=== PATIENT | female | born 1960 | race Caucasian/White ===

== ENCOUNTER → 2016-10-11 | Outpatient (CLI) | payer OTHER ==
[2014-06-17 14:22] VITALS: BP 140/86
[~2016-10-11] MED LIST: CALC-31 PO; MULT1TAB52 PO; OMEG500C PO
--- NOTE | 2016-10-11 14:45 | KCIC ---
CHEST PA LATERAL History: . Wheezing. Cough for 2 months. 20 year smoker. Comparison: None available Findings: Cardiomediastinal silhouettes are within normal limits. There are emphysematous changes of both lungs. No focal airspace consolidation. Surgical clips are noted. No pneumothorax identified. No evidence of pleural effusion. The aorta is tortuous. Impression: No evidence of active airspace consolidation. Electronically signed by: Isaac Rodarte MD (10/11/2016 2:42 PM) [facility]2
== END | disposition home or self-care (01) ==
LOC: KCIC 14:11
PROVIDERS: ATTEND Nurse Practitioner Family
DX: R05 Cough (principal); R06.2 Wheezing; Z87.891 Personal history of nicotine dependence
CPT/HCPCS: 71020

== ENCOUNTER → 2017-04-13 | Outpatient (CLI) | payer MEDICARE, OTHER | END | disposition home or self-care (01) | LOC: KCIC 11:54 | DX: R91.8 Other nonspecific abnormal finding of lung field (principal); R05 Cough | CPT/HCPCS: 71046 ==

== ENCOUNTER → 2017-04-24 | Outpatient (CLI) | payer MEDICARE, OTHER | END | disposition home or self-care (01) | LOC: ECHO 13:43 | DX: C50.412 Malignant neoplasm of upper-outer quadrant of left female breast (principal); C41.9 Malignant neoplasm of bone and articular cartilage, unspecified | CPT/HCPCS: 93308 ==

== ENCOUNTER 2017-09-22 16:59 | Inpatient (IN) | payer MEDICARE, OTHER ==
[2017-09-22] MEDS ORDERED: ONDANSETRON PF 4 MG/2 ML VIAL. IV (18:45)
[2017-09-22] MEDS ORDERED: guaiFENesin DM 200MG/20MG 10 ML SYRUP PO (18:45)
[2017-09-22] MEDS ORDERED: oxyCODONE IR 5 MG TABLET PO ×2 (18:45→19:00)
[2017-09-22] MEDS ORDERED: BISACODYL 10 MG SUPP.RECT. PR (18:45)
[2017-09-22] MEDS ORDERED: PROCHLORPERAZINE 25 MG SUPP.RECT. PR (18:45)
[2017-09-22] MEDS ORDERED: MORPHINE SULFATE 2 MG/ML DISP.SYRIN. IV (18:45)
[2017-09-22] MEDS ORDERED: MAGNESIUM HYDROXIDE 2,400 MG/30 ML ORAL.SUSP. PO (18:45)
[2017-09-22] MEDS ORDERED: levOFLOXacin PER PHARMACY. MC ×2 (18:45→20:45)
[2017-09-22] MEDS ORDERED: IBUPROFEN 400 MG TABLET. PO (18:45)
[2017-09-22] MEDS ORDERED: ZOLPIDEM 5 MG TABLET. PO (18:45)
[2017-09-22] MEDS ORDERED: MAG HYDROX/ALUMINUM HYD/SIMETH 30 ML ORAL.SUSP PO (18:45)
[2017-09-22] MEDS ORDERED: PROCHLORPERAZINE 10 MG/2 ML VIAL. IV (18:45)
[2017-09-22] MEDS ORDERED: ONDANSETRON ODT 4 MG TAB.RAPDIS. PO (19:00)
[2017-09-22] MEDS: IV 1/2 NORMAL SALINE 1,000 ML IV (19:00)
[2017-09-22] MEDS: IPRATRPIUM/ALBUTEROL 0.5/2.5MG 3 ML NEBU. NEB (19:45)
[2017-09-22] MEDS: GABAPENTIN 300 MG CAPSULE. PO (20:40)
[2017-09-22] MEDS: oxyCODONE IR 5 MG TABLET PO (20:40)
[2017-09-22] MEDS: ATORVASTATIN CALCIUM 10 MG TABLET. PO (20:40)
[2017-09-22] MEDS: MONTELUKAST SODIUM 10 MG TABLET. PO (20:40)
[2017-09-22] MEDS: ACETAMINOPHEN 325 MG TABLET. PO (20:41)
[2017-09-22] MEDS: oxyCODONE ER 40 MG TAB.ER.12H PO (20:42)
[2017-09-22 21:22] LABS: ANION GAP 9 (6-14); BLOOD UREA NITROGEN 7 mg/dL (7-20); BUN/CREATININE RATIO 9 (6-20); CALCIUM 7.9 mg/dL (8.5-10.1); CARBON DIOXIDE 26 mmol/L (21-32); CHLORIDE 87 mmol/L (98-107); CREATININE 0.8 mg/dL (0.6-1.0); GFR 74.7; GLUCOSE 94 mg/dL (70-99); POTASSIUM 3.2 mmol/L (3.5-5.1); SODIUM 122 mmol/L (136-145)
[2017-09-22 21:28] LABS: ALBUMIN 3.2 g/dL (3.4-5.0); ALBUMIN/GLOBULIN RATIO 0.9 (1.0-1.7); ALK PHOS 44 U/L (46-116); ALT (SGPT) 42 U/L (14-59); AST (SGOT) 137 U/L (15-37); TOTAL BILIRUBIN 0.6 mg/dL (0.2-1.0); TOTAL PROTEIN 6.8 g/dL (6.4-8.2)
[2017-09-22 21:33] LABS: LACTIC ACID 2.1 mmol/L (0.4-2.0)
[2017-09-22] MEDS: FAMOTIDINE 20 MG/2 ML VIAL IVP (23:41)
[2017-09-23 01:18] LABS: ADD MAN DIFF? NO
[2017-09-23 01:24] LABS: BASO % 0 % (0-3); EOS % 0 % (0-3); HEMATOCRIT 33.3 % (36.0-47.0); HEMOGLOBIN 11.8 g/dL (12.0-15.5); LYMPH # 0.4 x10^3/uL (1.0-4.8); LYMPH % 20 % (24-48); MEAN CORPUSCULAR HEMOGLOBIN 38 pg (25-35); MEAN CORPUSCULAR HGB CONC 35 g/dL (31-37); MEAN CORPUSCULAR VOLUME 107 fL (79-100); MONO % 2 % (0-9); NEUT # 1.5 x10^3uL (1.8-7.7); NEUT % 77 % (31-73); PLATELET COUNT 63 x10^3/uL (140-400); RED BLOOD COUNT 3.12 x10^6/uL (3.50-5.40); RED CELL DISTRIBUTION WIDTH 13.9 % (11.5-14.5)
[2017-09-23 01:25] LABS: WHITE BLOOD COUNT 1.9 x10^3/uL (4.0-11.0)
[2017-09-23 01:31] LABS: INR 1.3 (0.8-1.1); PROTHROMBIN TIME PATIENT 15.8 SEC (11.7-14.0)
[2017-09-23 01:32] LABS: ANION GAP 9 (6-14); BLOOD UREA NITROGEN 8 mg/dL (7-20); CARBON DIOXIDE 25 mmol/L (21-32); CHLORIDE 86 mmol/L (98-107); CREATININE 0.8 mg/dL (0.6-1.0); GFR 74.7; GLUCOSE 84 mg/dL (70-99); POTASSIUM 3.2 mmol/L (3.5-5.1)
[2017-09-23 01:36] LABS: SODIUM 120 mmol/L (136-145)
[2017-09-23 01:42] LABS: LACTIC ACID 2.1 mmol/L (0.4-2.0)
[2017-09-23] MEDS: IV NORMAL SALINE 1000ML BAG 1,000 ML IV ×3 (03:21→23:15)
[2017-09-23] MEDS: IPRATRPIUM/ALBUTEROL 0.5/2.5MG 3 ML NEBU. NEB ×4 (07:41→19:49)
[2017-09-23] MEDS: oxyCODONE IR 5 MG TABLET PO ×2 (08:09→15:52)
[2017-09-23] MEDS: oxyCODONE ER 40 MG TAB.ER.12H PO ×2 (08:09→20:15)
[2017-09-23] MEDS: GABAPENTIN 300 MG CAPSULE. PO ×2 (08:10→20:14)
[2017-09-23] MEDS: methylPREDNISolone SOD SUCC PF 125 MG/2 ML VIAL. IV ×3 (10:06→21:06)
[2017-09-23] MEDS: CALCIUM CARBONATE 500 MG TAB.CHEW PO ×2 (20:14→23:51)
[2017-09-23] MEDS: MONTELUKAST SODIUM 10 MG TABLET. PO (20:15)
[2017-09-23] MEDS: ATORVASTATIN CALCIUM 10 MG TABLET. PO (20:15)
[2017-09-23] MEDS: FAMOTIDINE 20 MG TABLET. PO (20:15)
[2017-09-24] MEDS: IV NORMAL SALINE 1000ML BAG 1,000 ML IV ×2 (05:04→19:15)
[2017-09-24] MEDS: methylPREDNISolone SOD SUCC PF 125 MG/2 ML VIAL. IV ×3 (05:04→21:53)
[2017-09-24] MEDS: oxyCODONE IR 5 MG TABLET PO ×3 (05:11→16:27)
[2017-09-24 05:40] LABS: THYROID STIM HORMONE (TSH) 35.121 uIU/mL (0.358-3.74)
[2017-09-24] MEDS: IPRATRPIUM/ALBUTEROL 0.5/2.5MG 3 ML NEBU. NEB ×4 (06:56→19:59)
[2017-09-24] MEDS: GABAPENTIN 300 MG CAPSULE. PO ×2 (09:02→20:21)
[2017-09-24] MEDS: oxyCODONE ER 40 MG TAB.ER.12H PO ×2 (09:10→20:22)
[2017-09-24 10:52] LABS: BASO % 0 % (0-3); EOS % 0 % (0-3); HEMATOCRIT 33.3 % (36.0-47.0); LYMPH # 0.2 x10^3/uL (1.0-4.8); LYMPH % 4 % (24-48); MEAN CORPUSCULAR HEMOGLOBIN 38 pg (25-35); MEAN CORPUSCULAR HGB CONC 36 g/dL (31-37); MEAN CORPUSCULAR VOLUME 105 fL (79-100); MONO # 0.1 x10^3/uL (0.0-1.1); MONO % 2 % (0-9); NEUT # 6.4 x10^3uL (1.8-7.7); NEUT % 94 % (31-73); PLATELET COUNT 96 x10^3/uL (140-400); RED BLOOD COUNT 3.16 x10^6/uL (3.50-5.40); RED CELL DISTRIBUTION WIDTH 13.9 % (11.5-14.5); WHITE BLOOD COUNT 6.8 x10^3/uL (4.0-11.0)
[2017-09-24 11:13] LABS: ADD MAN DIFF? YES
[2017-09-24 13:28] LABS: % BANDS 40 % (0-9); % LYMPHS 6 % (24-48); % MONOS 1 % (0-10); % SEGS 53 % (35-66); PLT ESTIMATE DECREASED (ADEQUATE)
[2017-09-24 13:29] LABS: TOXIC GRANULATION MARKED; TOXIC VACUOLATION PRESENT
[2017-09-24] MEDS: ALPRAZolam 1 MG TABLET PO (16:28)
[2017-09-24] MEDS: ATORVASTATIN CALCIUM 10 MG TABLET. PO (20:21)
[2017-09-24] MEDS: FAMOTIDINE 20 MG TABLET. PO (20:21)
[2017-09-24] MEDS: ZOLPIDEM 5 MG TABLET. PO (20:22)
[2017-09-24] MEDS: MONTELUKAST SODIUM 10 MG TABLET. PO (20:22)
[2017-09-24 20:54] LABS: BASE EXCESS ABG 3 mmol/L (-3-3); HCO3 ABG 26 mmol/L (21-28); PCO2 ABG 34 mmHg (35-46); PH ABG 7.49 (7.35-7.45); PO2 ABG 94 mmHg (75-108); SAT O2 ABG 97 % (92-99)
[2017-09-24 21:03] LABS: FIO2 ABG 60
[2017-09-25] MEDS: IV NORMAL SALINE 1000ML BAG 1,000 ML IV ×2 (05:15→17:30)
[2017-09-25] MEDS: methylPREDNISolone SOD SUCC PF 125 MG/2 ML VIAL. IV ×3 (06:17→21:10)
[2017-09-25] MEDS: IPRATRPIUM/ALBUTEROL 0.5/2.5MG 3 ML NEBU. NEB ×4 (07:20→20:18)
[2017-09-25] MEDS: oxyCODONE ER 40 MG TAB.ER.12H PO ×2 (09:00→21:10)
[2017-09-25] MEDS: GABAPENTIN 300 MG CAPSULE. PO ×2 (09:00→21:09)
[2017-09-25] MEDS ORDERED: PROPOFOL 20 ML IV (13:33)
[2017-09-25] MEDS: IV RINGERS,LACTATED 1000ML 1,000 ML IV (13:40)
[2017-09-25] MEDS ORDERED: MIDAZOLAM HCL/PF 2 MG/2 ML VIAL. IV (13:45)
[2017-09-25] MEDS: LIDOCAINE 2% IJ (13:45)
[2017-09-25] MEDS ORDERED: LIDOCAINE 1% PF 2 ML VIAL. ID (13:45)
[2017-09-25] MEDS ORDERED: fentaNYL PF VIAL 100 MCG/2 ML VIAL IV ×2 (13:45)
[2017-09-25] MEDS: ATORVASTATIN CALCIUM 10 MG TABLET. PO (21:09)
[2017-09-25] MEDS: ZOLPIDEM 5 MG TABLET. PO (21:09)
[2017-09-25] MEDS: FAMOTIDINE 20 MG TABLET. PO (21:09)
[2017-09-25] MEDS: MONTELUKAST SODIUM 10 MG TABLET. PO (21:09)
[2017-09-26] MEDS: IV NORMAL SALINE 1000ML BAG 1,000 ML IV ×3 (00:49→20:36)
[2017-09-26] MEDS: methylPREDNISolone SOD SUCC PF 125 MG/2 ML VIAL. IV ×3 (06:23→22:38)
[2017-09-26] MEDS: IPRATRPIUM/ALBUTEROL 0.5/2.5MG 3 ML NEBU. NEB ×4 (07:17→19:26)
[2017-09-26] MEDS: GABAPENTIN 300 MG CAPSULE. PO ×2 (07:58→21:07)
[2017-09-26] MEDS: oxyCODONE ER 40 MG TAB.ER.12H PO ×2 (08:00→21:08)
[2017-09-26] MEDS: FAMOTIDINE 20 MG TABLET. PO (21:07)
[2017-09-26] MEDS: MONTELUKAST SODIUM 10 MG TABLET. PO (21:08)
[2017-09-26] MEDS: ATORVASTATIN CALCIUM 10 MG TABLET. PO (21:08)
[2017-09-27] MEDS: methylPREDNISolone SOD SUCC PF 125 MG/2 ML VIAL. IV ×4 (05:58→21:33)
[2017-09-27] MEDS: IV NORMAL SALINE 1000ML BAG 1,000 ML IV ×2 (07:15→16:27)
[2017-09-27] MEDS: IPRATRPIUM/ALBUTEROL 0.5/2.5MG 3 ML NEBU. NEB ×4 (07:24→20:00)
[2017-09-27] MEDS: GABAPENTIN 300 MG CAPSULE. PO ×2 (07:55→23:28)
[2017-09-27] MEDS: cloNIDine TTS-1 1 PATCH PATCH.TDWK TD (07:56)
[2017-09-27] MEDS: oxyCODONE ER 40 MG TAB.ER.12H PO ×2 (07:56→23:28)
[2017-09-27] MEDS: ATORVASTATIN CALCIUM 10 MG TABLET. PO (23:28)
[2017-09-27] MEDS: FAMOTIDINE 20 MG TABLET. PO (23:28)
[2017-09-27] MEDS: MONTELUKAST SODIUM 10 MG TABLET. PO (23:28)
[2017-09-28] MEDS: IV NORMAL SALINE 1000ML BAG 1,000 ML IV ×3 (01:36→23:13)
[2017-09-28] MEDS: methylPREDNISolone SOD SUCC PF 125 MG/2 ML VIAL. IV ×3 (05:39→21:58)
[2017-09-28] MEDS: IPRATRPIUM/ALBUTEROL 0.5/2.5MG 3 ML NEBU. NEB ×4 (07:24→19:22)
[2017-09-28] MEDS: oxyCODONE ER 40 MG TAB.ER.12H PO ×2 (09:22→21:59)
[2017-09-28] MEDS: GABAPENTIN 300 MG CAPSULE. PO ×2 (09:22→21:58)
[2017-09-28 13:30] LABS: ADD MAN DIFF? NO
[2017-09-28 13:39] LABS: BASO % 0 % (0-3); EOS % 0 % (0-3); HEMATOCRIT 31.3 % (36.0-47.0); HEMOGLOBIN 11.2 g/dL (12.0-15.5); LYMPH # 0.3 x10^3/uL (1.0-4.8); LYMPH % 4 % (24-48); MEAN CORPUSCULAR HEMOGLOBIN 38 pg (25-35); MEAN CORPUSCULAR HGB CONC 36 g/dL (31-37); MEAN CORPUSCULAR VOLUME 105 fL (79-100); MONO % 0 % (0-9); NEUT # 7.7 x10^3uL (1.8-7.7); NEUT % 96 % (31-73); PLATELET COUNT 45 x10^3/uL (140-400); RED BLOOD COUNT 2.98 x10^6/uL (3.50-5.40); RED CELL DISTRIBUTION WIDTH 13.9 % (11.5-14.5)
[2017-09-28 13:54] LABS: ALBUMIN 2.8 g/dL (3.4-5.0); ALBUMIN/GLOBULIN RATIO 0.8 (1.0-1.7); ALK PHOS 60 U/L (46-116); ALT (SGPT) 49 U/L (14-59); ANION GAP 7 (6-14); AST (SGOT) 151 U/L (15-37); BLOOD UREA NITROGEN 10 mg/dL (7-20); BUN/CREATININE RATIO 14 (6-20); CALCIUM 7.7 mg/dL (8.5-10.1); CARBON DIOXIDE 28 mmol/L (21-32); CHLORIDE 95 mmol/L (98-107); CREATININE 0.7 mg/dL (0.6-1.0); GFR 86.9; GLUCOSE 160 mg/dL (70-99); POTASSIUM 3.1 mmol/L (3.5-5.1); SODIUM 130 mmol/L (136-145); TOTAL BILIRUBIN 0.5 mg/dL (0.2-1.0); TOTAL PROTEIN 6.3 g/dL (6.4-8.2)
[2017-09-28] MEDS: MICAFUNGIN 100 MG in IV DEXTROSE 5% 100ML 100 ML IV (15:59)
[2017-09-28] MEDS: oxyCODONE IR 5 MG TABLET PO (16:44)
[2017-09-28] MEDS: MAG HYDROX/ALUMINUM HYD/SIMETH 30 ML ORAL.SUSP PO (18:25)
[2017-09-28] MEDS: FAMOTIDINE 20 MG TABLET. PO (21:58)
[2017-09-28] MEDS: ATORVASTATIN CALCIUM 10 MG TABLET. PO (21:59)
[2017-09-28] MEDS: MONTELUKAST SODIUM 10 MG TABLET. PO (21:59)
[2017-09-29] MEDS: methylPREDNISolone SOD SUCC PF 125 MG/2 ML VIAL. IV ×2 (05:55→16:22)
[2017-09-29] MEDS: IPRATRPIUM/ALBUTEROL 0.5/2.5MG 3 ML NEBU. NEB ×3 (07:58→16:00)
[2017-09-29] MEDS: GABAPENTIN 300 MG CAPSULE. PO (08:47)
[2017-09-29] MEDS: oxyCODONE ER 40 MG TAB.ER.12H PO (08:48)
[2017-09-29] MEDS: IV NORMAL SALINE 1000ML BAG 1,000 ML IV (08:51)
[2017-09-29] MEDS ORDERED: IV NORMAL SALINE 1000ML BAG 1,000 ML IV (11:00)
== END 2017-09-29 17:10 | disposition home or self-care (01) | DRG 853 ==
LOC: 5 SOUTH 09-24 16:07
PROC: 0B9J8ZX Drainage of Left Lower Lung Lobe, Via Natural or Artificial Opening Endoscopic, Diagnostic (ICD-10-PCS; principal; 2017-09-25 14:48)
PROC: 0BCB8ZZ Extirpation of Matter from Left Lower Lobe Bronchus, Via Natural or Artificial Opening Endoscopic (ICD-10-PCS; 2017-09-25 14:48)
DX: A41.9 Sepsis, unspecified organism (principal); J18.9 Pneumonia, unspecified organism; J96.01 Acute respiratory failure with hypoxia; G93.40 Encephalopathy, unspecified; E46 Unspecified protein-calorie malnutrition; E87.1 Hypo-osmolality and hyponatremia; J44.0 Chronic obstructive pulmonary disease with (acute) lower respiratory infection; C79.51 Secondary malignant neoplasm of bone; T17.890A Other foreign object in other parts of respiratory tract causing asphyxiation, initial encounter; D64.9 Anemia, unspecified; D70.9 Neutropenia, unspecified; E78.00 Pure hypercholesterolemia, unspecified; E87.6 Hypokalemia; F17.210 Nicotine dependence, cigarettes, uncomplicated; F41.9 Anxiety disorder, unspecified; G47.00 Insomnia, unspecified; G89.29 Other chronic pain; I10 Essential (primary) hypertension; Z51.5 Encounter for palliative care; M19.90 Unspecified osteoarthritis, unspecified site; C50.919 Malignant neoplasm of unspecified site of unspecified female breast; X58.XXXA Exposure to other specified factors, initial encounter; Z68.25 Body mass index [BMI] 25.0-25.9, adult; Z85.72 Personal history of non-Hodgkin lymphomas; Z85.3 Personal history of malignant neoplasm of breast; Z85.850 Personal history of malignant neoplasm of thyroid; Z87.01 Personal history of pneumonia (recurrent); Z90.13 Acquired absence of bilateral breasts and nipples; Z99.81 Dependence on supplemental oxygen; Z87.81 Personal history of (healed) traumatic fracture; Z90.11 Acquired absence of right breast and nipple; Z82.61 Family history of arthritis; Y93.89 Activity, other specified; Y92.89 Other specified places as the place of occurrence of the external cause; Y99.8 Other external cause status
CPT/HCPCS: 31622; 36415; 36600; 71046; 80048; 80053; 82805; 83605; 84443; 85007; 85025; 85610; 87040; 87070; 87102; 87116; 88112; 88312; 93005; 94618; 94640; 94660; 94760; 97163-GP; 97166-GO; 97530-GO; 97530-GP; 97535-GO; J1956; J2060; J2248; J2704; J2930; J7030; J7120; J7620; S0028

== ENCOUNTER → 2017-12-05 | Outpatient (CLI) | payer MEDICARE, OTHER ==
[2017-10-12 07:00] VITALS: BP 112/58
[~2017-12-05] MED LIST changes: +ATOR10TA60 PO; +BUDE180A IH; +CLON1PAT TD; +FAMO20TA5 PO; +FULV250D IM; +GABA-586 PO; +IOHEXOL 240 MG/ML 50ML VIAL. PO ONE; +IOHEXOL 300 MG/ML 100ML VIAL. IV ONE; +IPRA3AMP29 NEB; +LEVO500T59 PO; +LEVO750T31 PO; +LINE600T PO; +METH4TAB2 PO; +MONT10TA9 PO; +ONDA4TAB7 PO; +OXYC10TA PO; +OXYC40TA21 PO; +OXYC5TAB95 PO; +ZOLP10TA PO; +[UNRECOGNIZED DRUG - CODE] IV
--- NOTE | 2017-12-05 16:31 | RAD ---
PQRS Compliance Statement: One or more of the following individualized dose reduction techniques were utilized for this examination: 1. Automated exposure control 2. Adjustment of the mA and/or kV according to patient size 3. Use of iterative reconstruction technique CT chest, abdomen and pelvis with contrast December 05, 2017 INDICATION: Breast cancer, lung mass. COMPARISON: CT angiography chest April 15, 2017. TECHNIQUE: Multiple axial CT images of the chest, abdomen and pelvis were obtained after the intravenous administration of 75 mL Omnipaque 300. Coronal and sagittal reformats are provided. FINDINGS: CHEST: The thyroid gland is normal in appearance. There is a right superior paratracheal lymph node which measures 7 mm by short axis (series 2, image 20). Surgical clips are identified in the left axilla. Few surgical clips are noted in the right axilla. Bilateral breast prosthesis noted. There is folding of the internal architecture of the capsule of the right breast prosthesis with minimal fluid along the right lateral margin suggestive of rupture of the prosthesis. Heart size is within normal limits. There is a small pericardial effusion. Thoracic aorta is normal in course and caliber. There is mild centrilobular pulmonary emphysema. Subpleural nodules are identified along the major fissure in the right middle lobe measuring up to 6 mm (series 2, image 45). There is mild bronchial wall thickening with mild tree-in-bud nodularity in the right lower lobe. There is a 4 mm solid noncalcified pulmonary nodule in the right upper lobe (series 2, image 25). There is a subpleural nodule in the right upper lobe anteriorly measuring 5 mm (series 2, image 30). There is a semisolid nodule in the superior segment left lower lobe measuring 8 mm with a 1-2 mm solid component (series 2, image 28). Bronchial wall thickening is compatible with bronchitis. There is a CSF consolidation in the left lower lobe has predominantly resolved. Tree-in-bud nodularity in the right lower lobe has predominantly resolved with mild residual. ABDOMEN/PELVIS: The liver, spleen, bilateral adrenal glands, pancreas and gallbladder are normal in appearance. The abdominal aorta is normal in course and caliber. There are no pathologically enlarged lymph nodes in the abdomen and pelvis. There is no abdominal free fluid. There is no free intraperitoneal air. Moderate atherosclerotic calcination abdominal aorta is noted. The kidneys enhance symmetrically. There is no suspicious renal mass. There is no hydronephrosis. There are no suspected calculi within the kidneys, ureters or urinary bladder. Oral contrast was administered. Opacified bowel loops demonstrate normal mucosal fold pattern. Small and large bowel are normal in caliber. There is no evidence for bowel obstruction. There are no pericolonic inflammatory changes. A normal, nondilated appendix is visualized without adjacent inflammatory changes. Urinary bladder is within normal limits given degree of distention. Uterus and adnexa appear normal. Fixation hardware is identified in the proximal left femur. Sclerotic osseous densities are noted involving the iliac bones, sacrum and spine compatible with osseous metastatic disease. There is a superior endplate compression deformity of T12 with approximately 25-50 percent height loss. No significant sclerotic lesion is visualized in this region to suggest pathologic fracture. Findings appear chronic. Osseous lesion is identified involving the sternum without significant soft tissue component. IMPRESSION: 1. Interval near complete resolution of airspace disease in the left lower lobe. There is a semisolid nodule in the superior segment left lower lobe which may be infectious/inflammatory. 2. Tree-in-bud nodular airspace disease persists in the right lower lobe with interval improvement compared to prior examination. Recommend follow-up chest CT in 4-6 weeks to ensure resolution. At this time, additional 6-8 mm pulmonary nodules may be further assessed. 3. COPD changes with mild centrilobular pulmonary emphysema and bronchitis. 4. No pathologically enlarged thoracic lymph nodes are visualized. 5. No evidence for bryant metastases involving the abdomen and pelvis. 6. Sclerotic osseous metastatic disease is visualized. Superior plate compression deformity of T12 may be secondary to Schmorl's node. And likely chronic. Electronically signed by: Beryl Leija MD (12/05/2017 4:28 PM) [facility]
== END | disposition home or self-care (01) ==
LOC: CT 10:17
PROVIDERS: ATTEND Internal Medicine Hematology & Oncology
DX: C50.912 Malignant neoplasm of unspecified site of left female breast (principal); I10 Essential (primary) hypertension; J43.8 Other emphysema; I70.0 Atherosclerosis of aorta; E78.00 Pure hypercholesterolemia, unspecified; E78.5 Hyperlipidemia, unspecified
CPT/HCPCS: 74177; Q9966; Q9967

== ENCOUNTER → 2017-12-05 | Outpatient (CLI) | payer MEDICARE, OTHER ==
[2017-10-12 07:00] VITALS: BP 112/58
[~2017-12-05] MED LIST changes: -IOHEXOL 240 MG/ML 50ML VIAL. PO ONE; -IOHEXOL 300 MG/ML 100ML VIAL. IV ONE
--- NOTE | 2017-12-05 16:31 | RAD ---
PQRS Compliance Statement: One or more of the following individualized dose reduction techniques were utilized for this examination: 1. Automated exposure control 2. Adjustment of the mA and/or kV according to patient size 3. Use of iterative reconstruction technique CT chest, abdomen and pelvis with contrast December 05, 2017 INDICATION: Breast cancer, lung mass. COMPARISON: CT angiography chest April 15, 2017. TECHNIQUE: Multiple axial CT images of the chest, abdomen and pelvis were obtained after the intravenous administration of 75 mL Omnipaque 300. Coronal and sagittal reformats are provided. FINDINGS: CHEST: The thyroid gland is normal in appearance. There is a right superior paratracheal lymph node which measures 7 mm by short axis (series 2, image 20). Surgical clips are identified in the left axilla. Few surgical clips are noted in the right axilla. Bilateral breast prosthesis noted. There is folding of the internal architecture of the capsule of the right breast prosthesis with minimal fluid along the right lateral margin suggestive of rupture of the prosthesis. Heart size is within normal limits. There is a small pericardial effusion. Thoracic aorta is normal in course and caliber. There is mild centrilobular pulmonary emphysema. Subpleural nodules are identified along the major fissure in the right middle lobe measuring up to 6 mm (series 2, image 45). There is mild bronchial wall thickening with mild tree-in-bud nodularity in the right lower lobe. There is a 4 mm solid noncalcified pulmonary nodule in the right upper lobe (series 2, image 25). There is a subpleural nodule in the right upper lobe anteriorly measuring 5 mm (series 2, image 30). There is a semisolid nodule in the superior segment left lower lobe measuring 8 mm with a 1-2 mm solid component (series 2, image 28). Bronchial wall thickening is compatible with bronchitis. There is a CSF consolidation in the left lower lobe has predominantly resolved. Tree-in-bud nodularity in the right lower lobe has predominantly resolved with mild residual. ABDOMEN/PELVIS: The liver, spleen, bilateral adrenal glands, pancreas and gallbladder are normal in appearance. The abdominal aorta is normal in course and caliber. There are no pathologically enlarged lymph nodes in the abdomen and pelvis. There is no abdominal free fluid. There is no free intraperitoneal air. Moderate atherosclerotic calcination abdominal aorta is noted. The kidneys enhance symmetrically. There is no suspicious renal mass. There is no hydronephrosis. There are no suspected calculi within the kidneys, ureters or urinary bladder. Oral contrast was administered. Opacified bowel loops demonstrate normal mucosal fold pattern. Small and large bowel are normal in caliber. There is no evidence for bowel obstruction. There are no pericolonic inflammatory changes. A normal, nondilated appendix is visualized without adjacent inflammatory changes. Urinary bladder is within normal limits given degree of distention. Uterus and adnexa appear normal. Fixation hardware is identified in the proximal left femur. Sclerotic osseous densities are noted involving the iliac bones, sacrum and spine compatible with osseous metastatic disease. There is a superior endplate compression deformity of T12 with approximately 25-50 percent height loss. No significant sclerotic lesion is visualized in this region to suggest pathologic fracture. Findings appear chronic. Osseous lesion is identified involving the sternum without significant soft tissue component. IMPRESSION: 1. Interval near complete resolution of airspace disease in the left lower lobe. There is a semisolid nodule in the superior segment left lower lobe which may be infectious/inflammatory. 2. Tree-in-bud nodular airspace disease persists in the right lower lobe with interval improvement compared to prior examination. Recommend follow-up chest CT in 4-6 weeks to ensure resolution. At this time, additional 6-8 mm pulmonary nodules may be further assessed. 3. COPD changes with mild centrilobular pulmonary emphysema and bronchitis. 4. No pathologically enlarged thoracic lymph nodes are visualized. 5. No evidence for bryant metastases involving the abdomen and pelvis. 6. Sclerotic osseous metastatic disease is visualized. Superior plate compression deformity of T12 may be secondary to Schmorl's node. And likely chronic. Electronically signed by: Beryl Leija MD (12/05/2017 4:28 PM) [facility]1
== END | disposition home or self-care (01) ==
LOC: CT 10:20
PROVIDERS: ATTEND Internal Medicine Pulmonary Disease
DX: C50.912 Malignant neoplasm of unspecified site of left female breast (principal); I10 Essential (primary) hypertension; E78.5 Hyperlipidemia, unspecified; E78.00 Pure hypercholesterolemia, unspecified; J43.8 Other emphysema; Z87.891 Personal history of nicotine dependence
CPT/HCPCS: 71260

== ENCOUNTER → 2018-01-24 | Day surgery (SDC) | payer MEDICARE, OTHER ==
[~2018-01-24] VITALS: Ht 165.1 cm; Wt 66.7 kg
[~2018-01-24] MED LIST changes: +BUPIVACAINE MPF 0.5% 30 ML VIAL. ONE; +DEXAMETHASONE SOD PHOS 20 MG/5 ML VIAL. ONE; +HYDROmorphone 2 MG/ML VIAL IV PRN; +IV RINGERS,LACTATED 1000ML 1,000 ML IV SCH; +LIDOCAINE 1% PF 2 ML VIAL. ID PRN; +MIDAZOLAM HCL/PF 2 MG/2 ML VIAL. ONE; +MORPHINE SULFATE 2 MG/ML VIAL. IV PRN; +ONDANSETRON PF 4 MG/2 ML VIAL. IV PRN; +ONDANSETRON PF 4 MG/2 ML VIAL. ONE; +PHENYLEPHRINE in 0.9% NACL PF 1 MG/10 ML SYRINGE. IV ONE; +PROCHLORPERAZINE 10 MG/2 ML VIAL. IV PRN; +ROCURONIUM 50 MG/5 ML VIAL. ONE; +SEVOFLURANE 31 TO 60 MINUTES. IH ONE; +fentaNYL PF VIAL 100 MCG/2 ML VIAL IV PRN; +fentaNYL PF VIAL 250 MCG/5 ML VIAL ONE
--- NOTE | 2018-01-24 11:09 | PDOC ---
BRIEF OPERATIVE NOTE Date: Jan 24, 2018 Pre-Op Diagnosis incarcerated umbilical hernia Post-Op Diagnosis same Procedure Performed primary repair Surgeon Giovanny Anesthesia Type: General (LMA) Blood Loss 10cc IV Fluid 1000cc Specimens Obtained hernia sack Findings incarcerated pre-peritoneal fat and omentum Complications none Operative Note Wk # [id number] EDY HEBERT MD Jan 24, 2018 11:09
--- NOTE | 2018-01-24 11:10 | DISCH ---
DISCHARGE INSTRUCTIONS Condition on Discharge Condition on Discharge: Stable Activity After Discharge Activity Instructions for Disc: Resume previous activity, Activity as tolerated Lifting Instructions after Dis: No heavy lifting Driving Instructions after Dis: Do not drive (4-5 days) Diet after Discharge Diet after Discharge: Regular Wound Incision Care Wound/Incision Care: Ice to area for comfort Other wound/incision instructi: july shower Monday Follow-Up Follow up with: Giovanny next week Treatment/Equipment after DC Discharge Respiratory Equipmen: Oxygen EDY HEBERT MD Jan 24, 2018 11:10
[2018-01-24 12:25] VITALS: BP 114/64
--- NOTE | 2018-01-24 13:09 | OP ---
DATE OF SURGERY: 01/24/2018 PREOPERATIVE DIAGNOSIS: Incarcerated umbilical hernia. POSTOPERATIVE DIAGNOSIS: Incarcerated umbilical hernia. PROCEDURE: Primary repair. SURGEON: Edy Hebert MD. ANESTHESIA: General LMA. ESTIMATED BLOOD LOSS: 10 mL. INTRAVENOUS FLUID: 1 liter. INDICATIONS: The patient is a 57-year-old with umbilical hernia, brought for repair. DESCRIPTION OF PROCEDURE: The patient brought to the operating suite, given general LMA and the abdomen prepped and draped in usual sterile fashion. An infraumbilical incision was infiltrated with 0.5% Marcaine plain. Incision made and dissection carried down to the anterior sheath. The hernia was encircled with careful blunt dissection. [place] drain was placed around it. The umbilical skin was freed from the underlying hernia sac. The sac's contents were excised allowing the omentum to fall back into the abdomen. The small defect was closed with interrupted inverted [id number] 0 PDS suture x 2. A secondary row of 0 Vicryl was placed in a running fashion to reinforce the repair. Good hemostasis was present. When a correct sponge count was obtained, the umbilical skin was tacked to the underlying repair with 3-0 Vicryl. Skin closed with a subcuticular 4-0 Monocryl. Steri-Strips and sterile dressing applied. Abdominal binder placed. The patient awakened from her anesthetic and taken to the recovery room in satisfactory condition. EDY HEBERT MD DR: ABBY/shahzad JOB#: [id number] / [id number]
--- NOTE | 2018-01-25 16:08 | PATHOLOGY ---
[facility] Accession Number: [id number] . 01 Material submitted: . HERNIA SAC . 01 Clinician provided ICD-10: K42.9 . 01 Clinical history: . Umbilical hernia . 02 Diagnosis: "Hernia sac", herniorrhaphy: - Hernia sac with focal mild chronic inflammation. . (SKM:vjm;01/25/2018) AGA/01/25/2018 . 02 Electronically signed: . Gordo Correa MD, Pathologist NPI- [id number] . 01 Gross description: . The specimen is received in formalin, labeled "Brenda Sargent, hernia sac", is an irregular fragment of fibromembranous tissue with attached yellow soft tissue measuring 2.0 x 1.3 x 1.0 cm. No discrete nodules or masses identified. Epic Anesthesia Analyst tissue is submitted in A1. ([facility]; 01/24/2018) SHS/SHS . 02 Pathologist provided ICD-10: K42.9 . 02 CPT . 896871 Specimen Comment: A courtesy copy of this report has been sent to Specimen Comment: [phone], . Specimen Comment: Report sent to / DR GUANACO NOLEN Specimen Comment: A duplicate report has been generated due to demographic updates. Performed at: 01 [facility] [address], [place] [id number] MD North Rosen MD Phone: [phone] Performed at: 02 [facility] [address] [place], [place] [id number] MD Nain Yusuf MD Phone: [phone]
== END | disposition home or self-care (01) ==
LOC: SURG 08:49
PROVIDERS: ATTEND Surgery
DX: K42.0 Umbilical hernia with obstruction, without gangrene (principal); J43.9 Emphysema, unspecified; Z85.3 Personal history of malignant neoplasm of breast; C79.51 Secondary malignant neoplasm of bone; Z79.899 Other long term (current) drug therapy; Z90.13 Acquired absence of bilateral breasts and nipples; Z98.890 Other specified postprocedural states; Z87.891 Personal history of nicotine dependence; Z88.5 Allergy status to narcotic agent; Z72.89 Other problems related to lifestyle
CPT/HCPCS: 49587; 88302; A7015; J0690; J1100; J2250; J2370; J2405; J3010; J3490; J7120

== ENCOUNTER → 2018-03-23 | Outpatient (CLI) | payer MEDICARE, OTHER ==
[2018-01-24 12:25] VITALS: BP 114/64
[~2018-03-23] MED LIST changes: -BUPIVACAINE MPF 0.5% 30 ML VIAL. ONE; -DEXAMETHASONE SOD PHOS 20 MG/5 ML VIAL. ONE; -GABA-586 PO; +GABA300C18 PO; -HYDROmorphone 2 MG/ML VIAL IV PRN; -IV RINGERS,LACTATED 1000ML 1,000 ML IV SCH; -LIDOCAINE 1% PF 2 ML VIAL. ID PRN; -MIDAZOLAM HCL/PF 2 MG/2 ML VIAL. ONE; -MORPHINE SULFATE 2 MG/ML VIAL. IV PRN; -ONDANSETRON PF 4 MG/2 ML VIAL. IV PRN; -ONDANSETRON PF 4 MG/2 ML VIAL. ONE; +OXYC5TAB4 PO; -OXYC5TAB95 PO; -PHENYLEPHRINE in 0.9% NACL PF 1 MG/10 ML SYRINGE. IV ONE; -PROCHLORPERAZINE 10 MG/2 ML VIAL. IV PRN; -ROCURONIUM 50 MG/5 ML VIAL. ONE; -SEVOFLURANE 31 TO 60 MINUTES. IH ONE; -fentaNYL PF VIAL 100 MCG/2 ML VIAL IV PRN; -fentaNYL PF VIAL 250 MCG/5 ML VIAL ONE
--- NOTE | 2018-03-23 12:37 | CARD ---
MR#: [id number] Date of Study: 03/23/2018 Ordering Physician: NANCIE KINGSTON, Referring Physician: NANCIE KINGSTON, Tech: CAROLYN Hurtado APPROVED REPORT EXAM: Two-dimensional and M-mode echocardiogram with Doppler and color Doppler. Other Information Quality : FairHR: 77bpm INDICATION Breast Cancer RISK FACTORS Hypertension Hyperlipidemia Smoking 2D DIMENSIONS RVDd2.4 (2.9-3.5cm)Left Atrium(2D)3.3 (1.6-4.0cm) IVSd0.9 (0.7-1.1cm)Aortic Root(2D)3.0 (2.0-3.7cm) LVDd4.5 (3.9-5.9cm)LVOT Diameter2.1 (1.8-2.4cm) PWd1.0 (0.7-1.1cm)LVDs2.6 (2.5-4.0cm) FS (%) 42.8 %SV68.8 ml LVEF(%)74.0 (>50%) Aortic Valve AoV Peak Elver.99.8cm/sAoV VTI20.7cm AO Peak GR.4.0mmHgLVOT Peak Elver.84.3cm/s LVOT VTI 17.91cmAO Mean GR.3mmHg CECY (VMAX)2.24po7NFS (VTI)3.11cm2 Mitral Valve MV E Nydgadee81.4cm/sMV DECEL NXSY470lw MV A Lbrxnuwq18.9cm/sMV SSB106cg E/A Ratio1.0MVA (PHT)1.36cm2 TDI E/Lateral E'6.0E/Medial E'6.1 Pulmonary Valve PV Peak Brseuejs61.8cm/sPV Peak Grad.2mmHg Tricuspid Valve TR P. Pmesngmc767lk/sRAP TEKYQRGX2spTr TR Peak Gr.97wnIcJORV25rtHr Pulmonary Vein S1 Aqtdyigi71.7cm/sD2 Zoxqscyt88.1cm/s PVa nyhvjshp769wwjv LEFT VENTRICLE The left ventricle is normal size. There is normal left ventricular wall thickness. The left ventricu lar systolic function is normal. The Ejection Fraction is 55-60%. There is normal LV segmental wall m otion. The left ventricular diastolic function and filling is normal for age. RIGHT VENTRICLE The right ventricle is normal size. There is normal right ventricular wall thickness. The right ventr icular systolic function is normal. ATRIA The left atrium size is normal. The right atrium size is normal. The interatrial septum is intact wit h no evidence for an atrial septal defect or patent foramen ovale as noted on 2-D or Doppler imaging. AORTIC VALVE The aortic valve is normal in structure and function. Doppler and Color Flow revealed no significant aortic regurgitation. There is no significant aortic valvular stenosis. MITRAL VALVE The mitral valve is normal in structure and function. There is no evidence of mitral valve prolapse. There is no mitral valve stenosis. Doppler and Color Flow revealed no mitral valve regurgitation note d. TRICUSPID VALVE The tricuspid valve is not well visualized. Doppler and Color Flow revealed trace tricuspid regurgita tion. There is no tricuspid valve stenosis. PULMONIC VALVE The pulmonic valve is not well visualized. Doppler and Color Flow revealed no pulmonic valvular regur gitation. GREAT VESSELS The aortic root is normal in size. The IVC is normal in size and collapses >50% with inspiration. PERICARDIAL EFFUSION There is a trace pericardial effusion. Critical Notification Critical Value: No <Conclusion> The left ventricular systolic function is normal. The Ejection Fraction is 55-60%. There is normal LV segmental wall motion. Trace tricuspid regurgitation. There is a trace pericardial effusion. Signed by : Jaden Gama, Electronically Approved : 03/23/2018 12:35:49
== END | disposition home or self-care (01) ==
LOC: ECHO 10:32
PROVIDERS: ATTEND Internal Medicine Hematology & Oncology
DX: C50.412 Malignant neoplasm of upper-outer quadrant of left female breast (principal); I10 Essential (primary) hypertension; E78.49 Other hyperlipidemia; F17.200 Nicotine dependence, unspecified, uncomplicated; Z17.0 Estrogen receptor positive status [ER+]
CPT/HCPCS: 93306

== ENCOUNTER → 2018-08-08 | Outpatient (CLI) | payer MEDICARE ==
[2018-01-24 12:25] VITALS: BP 114/64
--- NOTE | 2018-08-08 14:42 | CARD ---
MR#: [id number] Date of Study: 08/08/2018 Ordering Physician: NANCIE KINGSTON, Referring Physician: NANCIE KINGSTON, Tech: Luz Burgos RDCS APPROVED REPORT EXAM: LIMITED Two-dimensional echocardiogram Other Information Quality : Technically Limited Technically limited study due to breast implants INDICATION LV Function:Systolic Breast/Bone Cancer LEFT VENTRICLE Limited ECHO for LV function. The left ventricle is normal size. There is normal left ventricular wal l thickness. The left ventricular systolic function is normal and the ejection fraction is within nor mal range. The Ejection Fraction is 55-60%. There is normal LV segmental wall motion. Critical Notification Critical Value: No <Conclusion> Limited ECHO for LV function. The left ventricle is normal size. The left ventricular systolic function is normal and the ejection fraction is within normal range. The Ejection Fraction is 55-60%. There is normal LV segmental wall motion. Signed by : Derek Engle MD Electronically Approved : 08/08/2018 14:41:59
== END | disposition home or self-care (01) ==
LOC: ECHO 10:13
PROVIDERS: ATTEND Internal Medicine Hematology & Oncology
DX: C50.412 Malignant neoplasm of upper-outer quadrant of left female breast (principal); Z17.0 Estrogen receptor positive status [ER+]
CPT/HCPCS: 93308

== ENCOUNTER → 2018-09-28 | Day surgery (SDC) | payer MEDICARE ==
[~2018-09-28] MED LIST changes: +IV RINGERS,LACTATED 1000ML 1,000 ML IV SCH; +LIDOCAINE 2% PF 5 ML VIAL. ONE; +MONT10TA49 PO; -MONT10TA9 PO; +PROPOFOL 20 ML IV ONE; +ePHEDrine PF IN SALINE 50 MG/10 ML SYRINGE. IV ONE
[2018-09-28 10:45] VITALS: BP 109/53
--- NOTE | 2018-10-01 13:06 | PATHOLOGY ---
[facility] Accession Number: [id number] . 01 Material submitted: . esophagus - DISTAL ESOPHAGEAL BIOPSIES. Modifiers: distal . 01 Clinical history: . Abnormal CT scan . 02 Diagnosis: Esophagus, distal, biopsy: - Fragments of columnar epithelium with mild chronic inflammation. - Fragment of hyperplastic squamous epithelium with focally increased intraepithelial eosinophils. (Please see comment). . (SK:mml; 10/01/2018) [facility]/10/01/2018 . 02 Comment: The finding of increased intraepithelial eosinophils in the squamous epithelium is suggestive of reflux esophagitis. . (SKM:mml; 10/01/2018) . 02 Electronically signed: . Gordo Correa MD, Pathologist NPI- [id number] . 01 Gross description: . Received in formalin labeled "Rosetta, Brenda, distal esophageal BX's," are 6 segments of ng soft tissue measuring 1.0 x 0.7 x 0.1 cm in aggregate dimensions and ranging from 0.1 to 0.4 cm in maximum dimension. The specimen is submitted entirely in cassette A1. ([facility]; 09/28/2018) TOB/TOB . 02 Pathologist provided ICD-10: K20.9 . 02 CPT . 357506 Specimen Comment: A courtesy copy of this report has been sent to Specimen Comment: [phone], . Specimen Comment: Report sent to / DR KAMARA Performed at: 01 [facility] [address], [place] [id number] MD North Rosen MD Phone: [phone] Performed at: 02 [facility] [address] [place], [place] [id number] MD Nain Yusuf MD Phone: [phone]
== END ==
LOC: ENDOS 09:32
PROVIDERS: ATTEND Internal Medicine Gastroenterology
DX: K21.0 Gastro-esophageal reflux disease with esophagitis (principal); K29.50 Unspecified chronic gastritis without bleeding
CPT/HCPCS: 43239; 88305; J0171; J2001; J2704

== ENCOUNTER → 2018-10-05 | Outpatient (CLI) | payer MEDICARE ==
[2018-09-28 10:45] VITALS: BP 109/53
[~2018-10-05] MED LIST changes: -IV RINGERS,LACTATED 1000ML 1,000 ML IV SCH; -LIDOCAINE 2% PF 5 ML VIAL. ONE; -PROPOFOL 20 ML IV ONE; -ePHEDrine PF IN SALINE 50 MG/10 ML SYRINGE. IV ONE
--- NOTE | 2018-10-05 17:02 | RAD ---
AP and lateral left femur HISTORY: Upper femur pain, swelling AP and lateral views were taken of the left femur. There is an old healed femoral neck fracture. There are 3 hip nails in good position. There is no acute femur fracture. The knee appears unremarkable. IMPRESSION: 1. Old healed femoral neck fracture. 2. No acute osseous abnormality. Electronically signed by: Nba Interiano MD (10/05/2018 4:59 PM) [facility]
== END | disposition home or self-care (01) ==
LOC: RAD 14:34
PROVIDERS: ATTEND Nurse Practitioner Adult Health
DX: M89.8X5 Other specified disorders of bone, thigh (principal)
CPT/HCPCS: 73552

== ENCOUNTER → 2018-12-06 | Outpatient (CLI) | payer MEDICARE ==
[2018-09-28 10:45] VITALS: BP 109/53
[~2018-12-06] MED LIST changes: +CONTRAST GIVEN. MC PRN; +IOHEXOL 240 MG/ML 50ML VIAL. PO ONE; +IOHEXOL 300 MG/ML 100ML VIAL. IV ONE; -LINE600T PO; +LINE600T37 PO
--- NOTE | 2018-12-06 17:58 | RAD ---
CT CHEST ABD PELVIS W/CONTRAST Indication: Breast cancer Technique: Postcontrast CT imaging was performed of the chest, abdomen, pelvis, multiplanar reconstruction images submitted. Oral contrast was also given. One or more of the following individualized dose reduction techniques were utilized for this examination: 1. Automated exposure control 2. Adjustment of the mA and/or kV according to patient size 3. Use of iterative reconstruction technique. Comparison: June 19, 2018 CHEST: Findings: There is again bilateral breast implants, again heterogeneity greater on the right with evidence of intracapsular rupture, also protrusion more medially on the right unchanged in appearance. Thoracic aortic caliber is within normal limits, no intraluminal flap. There is mild coronary calcification. There is similar mild pericardial fluid. There is no new pleural fluid, pneumothorax, new infiltrate. There is again fairly severe emphysema with upper zone predominance. No new significantly enlarged nodes are identified of the chest. There are some small mediastinal nodes as seen previously. There is again evidence of multifocal osseous metastatic disease with multiple sclerotic foci of the vertebral bodies, ribs, and sternum overall fairly similar. IMPRESSION: 1. There is again evidence of osseous metastatic disease. 2. There is no new suspicious pulmonary nodularity or lymphadenopathy. There is again emphysema with upper zone predominance. Abdomen pelvis FINDINGS: No new focal abnormality is identified of the liver, spleen, pancreas. Gallbladder is present without obvious intraluminal intraluminal abnormality although more distended on this exam. Both kidneys enhance, no hydronephrosis. There is no new significant adrenal nodularity. There is fairly prominent retained stool in the colon. There is no free air or significant free fluid. No new significant lymphadenopathy is identified. There is again accessory spleen. There is again multifocal osseous metastatic disease with scattered sclerotic lesions present. There are 3 cannulated screws of the proximal left femur. There is lumbar dextroscoliosis. There is multilevel lumbar degenerative disc disease greater anteriorly. There is multilevel lumbar facet degenerative change. Lumbar vertebral body stature is unchanged. Urinary bladder is somewhat distended. There is again degree of gastric wall prominence. IMPRESSION: 1. There is again evidence of osseous metastatic disease. 2. There is prominent retained stool in the colon. 3. There is again degree of gastric wall prominence, underlying gastritis not excluded by this exam, suboptimally evaluated. Electronically signed by: Niall Martínez MD (12/06/2018 5:55 PM) [id number]
== END | disposition home or self-care (01) ==
LOC: NM 10:07
PROVIDERS: ATTEND Internal Medicine Hematology & Oncology
DX: C79.51 Secondary malignant neoplasm of bone (principal); C50.412 Malignant neoplasm of upper-outer quadrant of left female breast; J34.9 Unspecified disorder of nose and nasal sinuses; K56.41 Fecal impaction; K82.8 Other specified diseases of gallbladder; N32.89 Other specified disorders of bladder; M51.36 Other intervertebral disc degeneration, lumbar region; Z17.0 Estrogen receptor positive status [ER+]
CPT/HCPCS: 71260; 74177; Q9966; Q9967

== ENCOUNTER → 2018-12-24 | Outpatient (CLI) | payer MEDICARE ==
[2018-09-28 10:45] VITALS: BP 109/53
[~2018-12-24] MED LIST changes: -CONTRAST GIVEN. MC PRN; -IOHEXOL 240 MG/ML 50ML VIAL. PO ONE; -IOHEXOL 300 MG/ML 100ML VIAL. IV ONE
--- NOTE | 2018-12-25 09:20 | CARD ---
MR#: [id number] Date of Study: 12/24/2018 Ordering Physician: NANCIE KINGSTON, Referring Physician: NANCIE KINGSTON, Tech: Heidi Turner APPROVED REPORT EXAM: Two-dimensional and M-mode echocardiogram with Doppler and color Doppler. Other Information Quality : AverageHR: 75bpm Technically limited study due to Breast Surgery INDICATION Breast Cancer 2D DIMENSIONS RVDd2.6 (2.9-3.5cm)Left Atrium(2D)3.4 (1.6-4.0cm) IVSd1.1 (0.7-1.1cm)Aortic Root(2D)3.0 (2.0-3.7cm) LVDd4.8 (3.9-5.9cm)LVOT Diameter2.1 (1.8-2.4cm) PWd0.8 (0.7-1.1cm)LVDs2.8 (2.5-4.0cm) FS (%) 42.5 %SV78.5 ml LVEF(%)73.5 (>50%) Aortic Valve AoV Peak Elver.93.6cm/sAoV VTI19.8cm AO Peak GR.3.5mmHgLVOT Peak Elver.82.6cm/s AO Mean GR.2mmHgAVA (VMAX)3.06cm2 Pulmonary Valve PV Peak Okwsmsee24.8cm/s Pulmonary Vein S1 Xixkpbih73.5cm/sD2 Xvzeagkn75.2cm/s PVa [id number] LEFT VENTRICLE The left ventricle is normal size. There is borderline to mild concentric left ventricular hypertroph y. The left ventricular systolic function is normal and the ejection fraction is within normal range. The Ejection Fraction is >55%. There is normal LV segmental wall motion. The left ventricular diasto lic function and filling is normal for age. RIGHT VENTRICLE The right ventricle is normal size. There is normal right ventricular wall thickness. The right ventr icular systolic function is normal. ATRIA The left atrium size is normal. The right atrium size is normal. The interatrial septum is intact wit h no evidence for an atrial septal defect or patent foramen ovale as noted on 2-D or Doppler imaging. AORTIC VALVE The aortic valve is normal in structure and function. Doppler and Color Flow revealed no significant aortic regurgitation. There is no significant aortic valvular stenosis. MITRAL VALVE The mitral valve is normal in structure and function. There is no evidence of mitral valve prolapse. There is no mitral valve stenosis. Doppler and Color Flow revealed no mitral valve regurgitation note d. TRICUSPID VALVE The tricuspid valve is normal in structure and function. Doppler and Color Flow revealed no tricuspid valve regurgitation noted. There is no tricuspid valve stenosis. PULMONIC VALVE The pulmonic valve is not well visualized. Doppler and Color Flow revealed no pulmonic valvular regur gitation. GREAT VESSELS The aortic root is normal in size. The IVC is normal in size and collapses >50% with inspiration. PERICARDIAL EFFUSION There is a small circumferential pericardial effusion without any significant hemodynamic compromise. Critical Notification Critical Value: No <Conclusion> The left ventricular systolic function is normal and the ejection fraction is within normal range. Th e Ejection Fraction is >55%. There is normal LV segmental wall motion. There is a small circumferential pericardial effusion without any significant hemodynamic compromise. Signed by : Trino Caballero, Electronically Approved : 12/24/2018 13:51:28
== END | disposition home or self-care (01) ==
LOC: ECHO 10:39
PROVIDERS: ATTEND Internal Medicine Hematology & Oncology
DX: C50.412 Malignant neoplasm of upper-outer quadrant of left female breast (principal); I51.7 Cardiomegaly; Z17.0 Estrogen receptor positive status [ER+]
CPT/HCPCS: 93306

== ENCOUNTER → 2020-04-20 | Outpatient (CLI) | payer MEDICARE ==
[2018-09-28 10:45] VITALS: BP 109/53
[~2020-04-20] MED LIST changes: +CONTRAST GIVEN. MC PRN; +IOHEXOL 240 MG/ML 50ML VIAL. PO ONE; +IOHEXOL 300 MG/ML 100ML VIAL. IV ONE; +LINE600T12 PO; -LINE600T37 PO; +MULT-445 PO; -MULT1TAB52 PO
--- NOTE | 2020-04-20 17:01 | RAD ---
EXAM: CT Chest, Abdomen, and Pelvis with IV contrast INDICATION: Reason: MALIGNANT NEOPLASM OF LEFT BREAST / Spl. Instructions: IV OMNI 300 75 MLS AND PO OMNI 240 50 MLS / History: TECHNIQUE: Multi-detector row CT images were acquired from the thoracic inlet through the ischial tu berosities with the use of IV contrast. Sagittal and coronal images were acquired from the transaxial data. All CT scans performed at this facility utilize dose optimization techniques as appropriate to the exam, including the following: Automated exposure control and adjustment of the mA and/or KV acc ording to patient size (this includes techniques or standardized protocols for targeted exams where d ose is indication/reason for exam). IV CONTRAST: Administered ORAL CONTRAST: Administered COMPARISON: Chest abdomen pelvis CT with IV contrast of 12/06/2018. FINDINGS: CHEST: CARDIOVASCULAR: 4 vessel arch. Scattered aortic calcifications. No flow-limiting stenosis. Normal he art size. Small pericardial effusion measuring up to 1.2 cm in maximum depth, slightly increased from prior. MEDIASTINUM & DANNY: Nonspecific low density to the thyroid gland without nodules or masses. No medias tinal mass or adenopathy. No hilar mass or adenopathy. LUNGS: Moderately advanced centrilobular emphysema. Bibasilar dependent atelectasis. PLEURAL SPACE: No pleural effusions or pneumothorax. OSSEOUS & SOFT TISSUE: Bilateral breast implants, showing extracapsular rupture on the right, similar to prior. Extensive osteoblastic metastatic deposits are redemonstrated, some of which are slightly larger in the interval (for example, left T2 pedicle lesion in image 9 of series 2 this exam compared with image 10 and prior study). ABDOMEN/PELVIS: LIVER: Unremarkable BILIARY SYSTEM: Gallbladder is unremarkable. Bile ducts are not dilated. PANCREAS: Generalized parenchymal atrophy is redemonstrated. No ductal dilation or mass lesions iden tified. SPLEEN: Unremarkable ADRENALS: Unremarkable KIDNEYS & URETERS: Unremarkable BLADDER: Unremarkable REPRODUCTIVE ORGANS: Unremarkable GASTROINTESTINAL: The stomach, small bowel, and colon are unremarkable. The appendix is normal. MESENTERY/PERITONEUM/RETROPERITONEUM: There is some soft tissue stranding in the right anterior parar enal space in the right lower quadrant abdomen that is new or more apparent in the interval. No organ ized fluid collection. No free air. VASCULAR: Scattered arterial calcifications. No abdominal aortic aneurysm. LYMPH NODES: No adenopathy OSSEOUS & SOFT TISSUES: Extensive osteoblastic lesions in the spine, visualized ribs and pelvis are redemonstrated, compatible with osteoblastic metastatic disease. Overall findings are similar to prio r. IMPRESSION: 1. Extensive osteoblastic metastatic disease, showing some evidence of gradual interval progression. 2. Bilateral mastectomy with implant reconstruction showing extracapsular rupture on the right, simil ar to prior. 3. Soft tissue stranding in the right lower quadrant retroperitoneum of uncertain significance. Corre late for any evidence of enteritis and/or possible drug related effects. Electronically signed by: Jer Lewis MD (04/20/2020 4:59 PM) [id number]
== END ==
LOC: CT 12:23
PROVIDERS: ATTEND Internal Medicine Hematology & Oncology
DX: C50.412 Malignant neoplasm of upper-outer quadrant of left female breast (principal); C79.51 Secondary malignant neoplasm of bone; J43.2 Centrilobular emphysema; J98.11 Atelectasis; I25.10 Atherosclerotic heart disease of native coronary artery without angina pectoris; I31.3 Pericardial effusion (noninflammatory); Z17.0 Estrogen receptor positive status [ER+]
CPT/HCPCS: 71260; 74177; Q9966; Q9967

== ENCOUNTER 2020-08-24 13:00 | Emergency (ER) | payer MEDICARE ==
[~2020-08-24] VITALS: Ht 165.1 cm; Wt 56.0 kg
[~2020-08-24 13:00] MED LIST changes: +ACET325T21 PO; +BACI1CAP10 PO; +CIPR250T30 PO; -CONTRAST GIVEN. MC PRN; +DOCU-153 PO; +GUAI100L12 PO; -IOHEXOL 240 MG/ML 50ML VIAL. PO ONE; -IOHEXOL 300 MG/ML 100ML VIAL. IV ONE; +LEVO50TA5 PO; +MAG30ORA2 PO; +POTA20TA4 PO
--- NOTE | 2020-08-24 13:38 | PHYS DOC ---
Past Medical History Past Medical History: Cancer, High Cholesterol, Hypertension, Other Additional Past Medical Histor: CA breast with mets to bone. Past Surgical History: Other Additional Past Surgical Histo: Bilateral masectomy,Fx and repair of L)femur, Smoking Status: Current Every Day Smoker Alcohol Use: Sober Drug Use: None General Adult EDM: Chief Complaint: FATIGUE HPI: HPI: 59 yo F stage IV breast cancer (Dr Manjarrez [facility] oncology) w/mets to bone/spine/liber, hypertension, hyperlipidemia, COPD on 3 L nasal cannula, s/p dc from [facility] 08/12 2/2 acinetobacter bacteremia on cipro (x10d), presents to the ED with complaints of weakness and diffuse headache with 3 episodes of NBNB vomiting, can only keep liquids down. Patient reports she does not take routine pain medications and her primary care physician recently started her on a short dose medication for pain but she is out of this medication. Review of Systems: Review of Systems: Constitutional: Denies fever or chills. [] Eyes: Denies change in visual acuity. [] HENT: Denies nasal congestion or sore throat. [] Respiratory: Denies cough or shortness of breath. [] Cardiovascular: Denies chest pain or edema. [] GI: Denies abdominal pain, bloody stools or diarrhea. [] : Denies dysuria or vaginal bleeding Musculoskeletal: Denies back pain or joint pain. [] Integument: Denies rash or diaphoresis Neurologic: Denies neck pain, focal weakness or sensory changes. [] Endocrine: Denies polyuria or polydipsia. [] Lymphatic: Denies swollen glands. [] Psychiatric: Denies depression or anxiety. [] Heart Score: C/O Chest Pain: No Risk Factors: Risk Factors: DM, Current or recent (<one month) smoker, HTN, HLP, family history of CAD, obesity. Risk Scores: Score 0 - 3: 2.5% MACE over next 6 weeks - Discharge Home Score 4 - 6: 20.3% MACE over next 6 weeks - Admit for Clinical Observation Score 7 - 10: 72.7% MACE over next 6 weeks - Early Invasive Strategies Allergies: Allergies: Allergies Coded Allergies Type Severity Reaction Last Updated Verified No Known Drug Allergies 09/28/18 No Physical Exam: PE: Constitutional: Afebrile, non-toxic appearance/chronically ill-appearing. HENT: Normocephalic, atraumatic, Eyes: EOMI, conjunctiva normal, no discharge. Neck: Normal range of motion, supple, Cardiovascular: S1/2 present, regular rhythm Lungs & Thorax: Speaking in full sentences, bilateral equal chest rise, no tachypnea or increased work of breathing Abdomen: soft, no tenderness, Skin: Warm, dry, no erythema, no rash. [] Back: No tenderness, no CVA tenderness. [] Extremities: No tenderness, no cyanosis, Neurologic: Alert and oriented X 3, normal motor function, normal sensory function, no focal deficits noted. [] Psychologic: Affect normal, judgement normal, mood normal. [] Radiology/Procedures: Radiology/Procedures: IMAGING REPORT Signed PATIENT: KIKI XIAO ACCOUNT: [id number] : 1960 LOCATION: ER AGE: 59 SEX: F EXAM STATUS: PRE ER ORD. PHYSICIAN: FRANCESCO CUNHA DO REASON: weakness PROCEDURE: PORTABLE CHEST 1V XR CHEST 1V INDICATION: weakness COMPARISON STUDY: 08/07/2020. FINDINGS: Lungs: Normal lung volume. No pulmonary mass or consolidation. The tracheobronchial tree and hilar structures are normal. Pleura: No pleural effusion or pneumothorax. Heart and Mediastinum: The cardiomediastinal silhouette is normal. Tortuosity of the thoracic aorta. IMPRESSION: No consolidation. Electronically signed by: Bhakti Lebron MD (08/24/2020 2:03 PM) [id number] DICTATED and SIGNED BY: BHAKTI LEBRON MD DATE: 08/24/20 [id number] Course & Med Decision Making: Course & Med Decision Making Pertinent Labs and Imaging studies reviewed. (See chart for details) Concern for mild hypomagnesemia in the setting of chronic normocytic anemia in the setting of fatigue and inappropriate pain control via bone metastases. We discussed analgesia options and patient feels well enough to return home. Headache and nausea have resolved (not the worst headache of her life). Pt tolerated oral intake. Will discharge home with strict ED return precautions were given for fever, syncope, chest pain or difficulties breathing. Encouraged urgent outpatient follow-up with PMD and pain management. Life-threatening processes were considered but are low suspicion at this time, given history, physical exam and ED workup. Pt was educated on all prescription medications and adverse effects. All patient's questions were answered and pt was stable at time of discharge. Life/limb-threatening differential includes but is not limited to, surgical abdomen (appendicitis, cholecystitis, diverticulitis, inflammatory bowel disease, abscess, perforation), meningitis, encephalitis, Giovanny's angina, endoc arditis, myocarditis, life-threatening rash (necrotizing fasciitis), gynecologic and urologic emergencies (endometritis, ovarian/testicular torsion, TOA, obstructive nephropathy, prostatitis), head and neck abscess, infection concerning for sepsis or shock, or respiratory failure. I spoken with the patient and her caregivers. I explained the patient's condition, diagnoses and treatment plan based on the information available to me at this time. I have answered the patient and her caregiver's questions and addressed any concerns. The patient and her caregivers have a good understanding of patient's diagnosis, condition and treatment plan as can be expected at this point. Vital signs have been stable. Patient's condition is stable and appropriate for discharge from the emergency department. Patient will pursue further outpatient evaluation with primary care physician or other designated or consulting physician as outlined in the discharge instructions. The patient and/or caregivers are agreeable to this plan of care and follow-up instructions have been explained in detail. The patient and/or caregivers have received these instructions in written form and have expressed an understanding of the discharge instructions. The patient and/or caregivers are aware that any significant change of condition or worsening of symptoms should prompt immediate return to this or the closest emergency department or call to 911. Tio Disclaimer: Tio Disclaimer: This electronic medical record was generated, in whole or in part, using a voice recognition dictation system. Departure Departure Impression: Primary Impression: Chronic pain Additional Impressions: Hypomagnesemia Normocytic anemia Disposition: HOME / SELF CARE / HOMELESS Condition: STABLE Referrals: MIGUEL ANGEL CARRION MD (PCP) follow up in 24-48 hours Patient Instructions: Anemia, Nonspecific-Brief, Bone Metastases, Hypomagnesemia Additional Instructions: FOLLOW UP WITH PAIN MANAGEMENT: Follow-up for management of chronic pain [facility] [address] [place] [id number] EMERGENCY DEPARTMENT GENERAL DISCHARGE INSTRUCTIONS Thank you for coming to [facility] Emergency Department (ED) today and trusting us with you care. We trust that you had a positive experience in our Emergency Department. If you wish to speak to the department management, you may call the Director at [phone]. YOUR FOLLOW UP INSTRUCTIONS ARE FOLLOWS: 1. Do you have a private Doctor? If you do not have a private doctor, please ask for a resource list of physicians or clinics that may be able to assist you with follow up care. 2. The Emergency Physicain has interpreted your x-rays. The X-Ray specialist will also review them. If there is a change in the findings, you will be notified in 48 hours when at all possible. 3. A lab test or culture has been done, your results will be reviewed and you will be notified if you need a change in treatment. ADDITIONAL INSTRUCTIONS AND INFORMATION: 1. Your care today has been supervised by a physician who is specially trained in emergency care. Many problems require more than one evaluation for a complete diagnosis and treatment. We recommend that you schedule your follow up appointment as recommended to ensure complete treatment of you illness or injury. If you are unable to obtain follow up care and continue to have a problem, or if your condition worsens, we recommend that you return to the ED. 2. We are not able to safely determine your condition over the phone nor are we able to give sound medical advice over the phone. For these safety reasons, if you call for medical advice we will ask you to come to the ED for further evaluation. 3. If you have any questions regarding these discharge instructions please call the ED at [phone]. SAFETY INFORMATION: In the interest of safety, wellness, and injury prevention; we encourage you to wear your sealbelt, if you smoke; quite smoking, and we encourage family to use a protective helmet for bicycling and other sporting events that present an increased risk for head injury. IF YOUR SYMPTOMS WORSEN OR NEW SYMPTOMS DEVELOP, OR YOU HAVE CONCERNS ABOUT YOUR CONDITION; OR IF YOUR CONDITION WORSENS WHILE YOU ARE WAITING FOR YOUR FOLLOW UP APPOIN TMENT; EITHER CONTACT YOUR PRIMARY CARE DOCTOR, THE PHYSICIAN WHOSE NAME AND NUMBER YOU WERE GIVEN, OR RETURN TO THE ED IMMEDIATELY. Scripts Oxycodone Hcl (OXYCODONE HCL) 5 Mg Capsule 5 MG PO PRN Q6HRS PRN for PAIN for 3 Days, #12 TAB 0 Refills Prov: FRACNESCO CUNHA DO 08/24/20 FRANCESCO CUNHA DO August 24, 2020 13:38
[2020-08-24 13:41] LABS: BASO # 0.1 x10^3/uL (0.0-0.2); BASO % 1 % (0-3); EOS % 1 % (0-3); HEMATOCRIT 28.5 % (36.0-47.0); HEMOGLOBIN 9.5 g/dL (12.0-15.5); LYMPH # 1.1 x10^3/uL (1.0-4.8); LYMPH % 26 % (24-48); MEAN CORPUSCULAR HEMOGLOBIN 32 pg (25-35); MEAN CORPUSCULAR HGB CONC 34 g/dL (31-37); MEAN CORPUSCULAR VOLUME 94 fL (79-100); MONO # 0.4 x10^3/uL (0.0-1.1); MONO % 9 % (0-9); NEUT # 2.7 x10^3/uL (1.8-7.7); NEUT % 63 % (31-73); PLATELET COUNT 211 x10^3/uL (140-400); RED BLOOD COUNT 3.02 x10^6/uL (3.50-5.40); RED CELL DISTRIBUTION WIDTH 16.2 % (11.5-14.5); WHITE BLOOD COUNT 4.3 x10^3/uL (4.0-11.0)
[2020-08-24] MEDS ORDERED: PROCHLORPERAZINE 10 MG/2 ML VIAL. IV ONE (13:45)
[2020-08-24] MEDS ORDERED: diphenhydrAMINE 50 MG/ML VIAL IVP ONE (13:45)
[2020-08-24] MEDS ORDERED: KETOROLAC 15 MG/ML VIAL. IVP ONE (13:45)
[2020-08-24] MEDS ORDERED: DEXAMETHASONE SOD PHOS 20 MG/5 ML VIAL. IV ONE (13:45)
[2020-08-24] MEDS ORDERED: IV NORMAL SALINE 1000ML BAG 1,000 ML IV ONE ×2 (13:45)
[2020-08-24] MEDS ORDERED: HYDROmorphone 2 MG/ML VIAL IVP ONE ×2 (13:45→18:00)
[2020-08-24 13:53] LABS: CALCIUM 9.3 mg/dL (8.5-10.1); CREATININE 0.6 mg/dL (0.6-1.0)
[2020-08-24 13:58] LABS: ALBUMIN 3.4 g/dL (3.4-5.0); DIRECT BILIRUBIN 0.1 mg/dL (0.0-0.2); MAGNESIUM 1.5 mg/dL (1.8-2.4); TOTAL BILIRUBIN 0.4 mg/dL (0.2-1.0); TOTAL PROTEIN 6.9 g/dL (6.4-8.2)
--- NOTE | 2020-08-24 14:05 | RAD ---
XR CHEST 1V INDICATION: weakness COMPARISON STUDY: 08/07/2020. FINDINGS: Lungs: Normal lung volume. No pulmonary mass or consolidation. The tracheobronchial tree and hilar st ructures are normal. Pleura: No pleural effusion or pneumothorax. Heart and Mediastinum: The cardiomediastinal silhouette is normal. Tortuosity of the thoracic aorta. IMPRESSION: No consolidation. Electronically signed by: Niall Lebron MD (08/24/2020 2:03 PM) [id number]
--- NOTE | 2020-08-24 17:26 | EKG ---
[facility] [address] [place] [address] Test Date: 2020-08-24 Test Time: 14:06:47 Pat Name: KIKI XIAO Department: Room: Gender: F [employer]: : 1960 Requested By: FRANCESCO CUNHA Order Number: [id number] Reading MD: Jaden Gama Measurements Intervals [place] Rate: 61 P: 58 PA: 176 QRS: 13 QRSD: 76 T: 56 QT: 430 QTc: 434 Interpretive Statements SINUS RHYTHM NORMAL ECG Electronically Signed On 08-25-2020 15:00:32 CDT by Jaden Gama
[2020-08-24] MEDS ORDERED: OXYC5CAP PO (17:27)
[2020-08-24] MEDS ORDERED: MAGNESIUM SULFATE 2GM 50 ML IV ONE (18:00)
[2020-08-24 19:12] VITALS: BP 118/60
== END 2020-08-24 20:13 | disposition home or self-care (01) ==
LOC: ER 13:00
DX: G89.29 Other chronic pain (principal); E83.42 Hypomagnesemia; D64.9 Anemia, unspecified; R53.1 Weakness; R51.9 Headache, unspecified; R11.2 Nausea with vomiting, unspecified; E78.00 Pure hypercholesterolemia, unspecified; I10 Essential (primary) hypertension; F17.200 Nicotine dependence, unspecified, uncomplicated
CPT/HCPCS: 36415; 71045; 80048; 80076; 82550; 83690; 83735; 84484; 85025; 93005; 96361; 96365; 96375; 96376; 99284; J0780; J1100; J1170; J1200; J1885; J3475; J7030; 99285-25